=== PATIENT | female | born 1970 | race Caucasian/White ===

== ENCOUNTER 2025-03-22 09:12 | Outpatient (CLI) | payer MEDICAID ==
[~2025-03-22] VITALS: Ht 180.3 cm; Wt 80.7 kg
[2025-03-22] MEDS: albuterol 2.5 MG/3 ML nebule NEB ONE (10:02)
[2025-03-22 10:04] VITALS: PULSE 69; RESP 16; O2SAT 98
[2025-03-22 10:15] VITALS: PULSE 71; RESP 16
[2025-03-22 11:11] LABS: MEAN PLATELET VOLUME 6.8 FL (7.4-10.4); RED CELL DISTRIBUTION WIDTH 13.9 % (11.5-14.5)
== END 2025-03-22 23:59 | disposition home or self-care (01) ==
LOC: RT 09:12
PROVIDERS: ATTEND Internal Medicine Pulmonary Disease
DX: J44.9 Chronic obstructive pulmonary disease, unspecified (principal); E88.01 Alpha-1-antitrypsin deficiency
CPT/HCPCS: 36415; 82103; 85025; 94060; 94727; 94729; 94760